=== PATIENT | male | born 1980 | race Asian ===

== ENCOUNTER 2016-12-25 14:14 | Emergency (ER) | payer SELFPAY ==
[~2016-12-25] VITALS: Ht 180.3 cm; Wt 97.5 kg
[2016-12-25 14:41] VITALS: BP 128/81
[2016-12-25] MEDS ORDERED: AMOX1TAB10 PO (15:12)
[2016-12-25] MEDS ORDERED: ERYT1OIN6 OD (15:12)
--- NOTE | 2016-12-25 15:13 | PHYS DOC ---
Past Medical History Past Medical History: No Pertinent History Past Surgical History: No Surgical History Additional Information: nonsmoker Alcohol Use: None Drug Use: None Adult General Chief Complaint Chief Complaint: EYE PROBLEMS HPI HPI Patient is a 35 year old male who presents with right upper medial eyelid swelling for 5 days. He denies any injury to the eye. He does not have any change in his vision or matting of the eyelashes in the mornings. He tried to squeeze it today with expression of blood and purulent drainage from the wound. He reports improvement in the pain after the drainage. He does not wear glasses or contacts. He does not have a PCP. Review of Systems Review of Systems Constitutional: Denies fever or chills. [] Eyes: Denies change in visual acuity, redness. Reports right upper eyelid medial abscess. Integument: Denies rash or skin lesions. Reports right upper eyelid medial abscess. Neurologic: Denies headache, focal weakness or sensory changes. [] Allergies Allergies Allergies Coded Allergies Type Severity Reaction Last Updated Verified No Known Drug Allergies 12/25/16 No Physical Exam Physical Exam Constitutional: Well developed, well nourished, no acute distress, non-toxic appearance. [] HENT: Normocephalic, atraumatic, bilateral external ears normal, oropharynx moist, no oral exudates, nose normal. [] Eyes: PERRLA, EOMI, conjunctiva normal, no discharge. There is a <1cm abscess of the right upper eyelid on the medial aspect. There is no edema of the lateral upper eyelid. There is no involvement of the tear duct inferiorly. There is no drainage from the eye. There is no conjunctival injection. Visual acuity: OS 20/25, OD 20/25, OU 20/20. Neck: Normal range of motion, no tenderness, supple, no stridor. [] Skin: Warm, dry, no erythema, no rash. See Eyes above. Neurologic: Alert and oriented X 3, normal motor function, normal sensory function, no focal deficits noted. [] Psychologic: Affect normal, judgement normal, mood normal. [] Current Patient Data Vital Signs Vital Signs Date Time Temp Pulse Resp B/P Pulse Ox O2 Delivery O2 Flow Rate FiO2 12/25/16 14:41 97.7 88 18 98 Room Air 97.7 EKG EKG [] Radiology/Procedures Radiology/Procedures [] Course & Med Decision Making Course & Med Decision Making Pertinent Labs and Imaging studies reviewed. (See chart for details) [] Dragon Disclaimer Dragon Disclaimer This electronic medical record was generated, in whole or in part, using a voice recognition dictation system. Departure Departure Impression: Primary Impression: Eyelid abscess Disposition: 01 HOME, SELF-CARE Condition: STABLE Referrals: SALMA FRAZIER MD Patient Instructions: Abscess, [id number] Additional Instructions: You were seen for an abscess of the upper eyelid. Please complete all of the prescribed antibiotic pills, even if you are feeling better. Please use the antibiotic ointment as directed. Please apply warm compresses to the eyelid to help with drainage. Please follow up with the utility mechanic supervisor listed below if you have worsening of the wound or change in your vision. Return to the emergency department if you have any new or concerning symptoms. Scripts Erythromycin Base (Erythromycin)3.5 Gm Oint...g.1 Anastasiya OD TID 7 Days Prov:DAILY BHANDARI 12/25/16 Amoxicillin/Potassium Clav (Amox Tr-K Clv 500-125 Mg Tab)1 Each Tablet1 Tab PO BID #14 TAB Prov:DAILY BHANDARI 12/25/16 Problem Qualifiers Primary Impression: Eyelid abscess Laterality: right Qualified Code: H00.033 - Abscess of eyelid right eye, unspecified eyelid DAILY BHANDARI Dec 25, 2016 15:13
== END 2016-12-25 15:18 | disposition home or self-care (01) ==
LOC: ER 14:14
DX: H00.031 Abscess of right upper eyelid (principal)
CPT/HCPCS: 99283

== ENCOUNTER 2017-11-06 17:29 | Emergency (ER) | payer SELFPAY ==
[2017-11-06 18:41] LABS: BILIRUBIN,URINE NEGATIVE (NEG); CLARITY,URINE CLEAR; COLOR,URINE YELLOW; GLUCOSE,URINE >=1000 mg/dL (NEG); NITRITE,URINE NEGATIVE (NEG); PROTEIN,URINE NEGATIVE (NEG-TRACE); UROBILINOGEN,URINE 0.2 mg/dL (0.2 mg/dL)
[2017-11-06] MEDS: IV NORMAL SALINE 1000ML BAG 1,000 ML IV ×2 (18:50)
[2017-11-06 18:54] LABS: ADD MAN DIFF? NO
[2017-11-06 18:57] LABS: BACTERIA,URINE 0 /HPF (0-FEW); BASO # 0.1 x10^3/uL (0.0-0.2); BASO % 1 % (0-3); EOS # 0.3 x10^3/uL (0.0-0.7); EOS % 3 % (0-3); HEMATOCRIT 43.1 % (39.0-53.0); HEMOGLOBIN 14.4 g/dL (13.0-17.5); LYMPH # 1.9 x10^3/uL (1.0-4.8); LYMPH % 24 % (24-48); MEAN CORPUSCULAR HEMOGLOBIN 29 pg (25-35); MEAN CORPUSCULAR HGB CONC 34 g/dL (31-37); MEAN CORPUSCULAR VOLUME 87 fL (79-100); MONO # 0.5 x10^3/uL (0.0-1.1); MONO % 6 % (0-9); NEUT % 65 % (31-73); PLATELET COUNT 217 x10^3/uL (140-400); RBC,URINE 0 /HPF (0-2); RED BLOOD COUNT 4.93 x10^6/uL (4.30-5.70); RED CELL DISTRIBUTION WIDTH 13.2 % (11.5-14.5); SQUAMOUS EPITHELIAL CELL,UR OCC /LPF; WBC,URINE OCC /HPF (0-4); WHITE BLOOD COUNT 7.7 x10^3/uL (4.0-11.0); YEAST,URINE PRESENT /HPF
[2017-11-06 19:10] LABS: ANION GAP 4 (6-14); BLOOD UREA NITROGEN 15 mg/dL (8-26); BUN/CREATININE RATIO 17 (6-20); CALCIUM 8.6 mg/dL (8.5-10.1); CARBON DIOXIDE 28 mmol/L (21-32); CHLORIDE 101 mmol/L (98-107); CREATININE 0.9 mg/dL (0.7-1.3); GFR 94.4; GLUCOSE 381 mg/dL (70-99); POTASSIUM 4.4 mmol/L (3.5-5.1); SODIUM 133 mmol/L (136-145)
[2017-11-06 19:14] LABS: ALBUMIN 3.3 g/dL (3.4-5.0); ALBUMIN/GLOBULIN RATIO 0.8 (1.0-1.7); ALK PHOS 126 U/L (46-116); ALT (SGPT) 21 U/L (16-63); AST (SGOT) 11 U/L (15-37); LIPASE 180 U/L (73-393); TOTAL BILIRUBIN 0.1 mg/dL (0.2-1.0); TOTAL PROTEIN 7.7 g/dL (6.4-8.2)
== END 2017-11-06 20:17 | disposition home or self-care (01) ==
LOC: ER 17:29
DX: E11.65 Type 2 diabetes mellitus with hyperglycemia (principal)
CPT/HCPCS: 36415; 80053; 81001; 83690; 85025; 96360; 99284-25; J7030

== ENCOUNTER 2017-11-10 13:03 | Emergency (ER) | payer SELFPAY | END 2017-11-10 16:07 | disposition home or self-care (01) | LOC: ER 13:03 | DX: B02.9 Zoster without complications (principal); E11.9 Type 2 diabetes mellitus without complications | CPT/HCPCS: 99284 ==